=== PATIENT | female | born 1980 | race African-American/Black ===

== ENCOUNTER 2021-01-31 14:17 | Emergency (ER) | payer MEDICAID ==
[~2021-01-31] VITALS: Ht 165.1 cm; Wt 103.0 kg
[2021-01-31 14:23] VITALS: BP 132/86
[2021-01-31] MEDS ORDERED: ACETAMINOPHEN 500MG TABLET PO ONE (15:45)
[2021-01-31] MEDS ORDERED: IBUP-2030 MT (17:20)
[2021-01-31] MEDS ORDERED: KETOROLAC 30MG/ML VIAL IM ONE (17:30)
[2021-01-31] MEDS ORDERED: METOCLOPRAMIDE HCL 10MG TABLET PO ONE (17:30)
== END 2021-01-31 17:45 | disposition home or self-care (01) ==
LOC: ER 14:38
DX: R51.9 Headache, unspecified (principal); E11.9 Type 2 diabetes mellitus without complications; Z88.8 Allergy status to other drugs, medicaments and biological substances; Z88.9 Allergy status to unspecified drugs, medicaments and biological substances; Z86.59 Personal history of other mental and behavioral disorders
CPT/HCPCS: 99284

== ENCOUNTER 2021-08-12 18:53 | Emergency (ER) | payer MEDICAID, OTHER ==
[~2021-08-12] VITALS: Ht 160 cm; Wt 115.0 kg
[~2021-08-12 18:53] MED LIST: IBUP-2030 MT
[2021-08-12] MEDS ORDERED: IBUPROFEN 400MG TABLET PO ONE (19:15)
[2021-08-12] MEDS ORDERED: ACETAMINOPHEN 325MG TABLET PO ONE (19:15)
[2021-08-12 20:45] LABS: BASOPHILS % 0.4 % (0.0-2.0); EOSINOPHILS % 4.3 % (0.0-5.0); HEMATOCRIT. 38.9 % (36.0-48.0); HEMOGLOBIN. 12.5 g/dL (12.0-16.0); LYMPHOCYTES % 37.4 % (20.0-50.0); MEAN CORPUSCULAR HEMOGLOBIN 26.3 pg (28.0-32.0); MEAN CORPUSCULAR VOLUME 81.6 fL (81.0-99.0); MEAN PLATELET VOLUME 9.5 fl (7.4-10.4); MONOCYTES % 7.3 % (2.0-8.0); NEUTROPHILS % 50.6 % (40.0-76.0); PLATELET 200 x1000/uL (130-400); RED BLOOD CELL COUNT 4.77 mill/uL (4.2-5.4); RED CELL DISTRIBUTION WIDTH 14.9 % (11.6-14.6)
[2021-08-12 20:54] LABS: HCG SCREEN NEGATIVE
[2021-08-12 20:55] LABS: CHLORIDE 109 mEq/L (98-107)
[2021-08-12 20:59] LABS: CLARITY URINE CLEAR (CLEAR); COLOR URINE YELLOW (YELLOW); KETONES URINE NEGATIVE (NEGATIVE); LEUKOCYTE ESTERASE URINE NEGATIVE (NEGATIVE); NITRITE URINE NEGATIVE (NEGATIVE); OCCULT BLOOD URINE 2+ (NEGATIVE); PH URINE 6.5 (4.5-8.0); PROTEIN URINE NEGATIVE (NEGATIVE); SPECIFIC GRAVITY URINE 1.014 (1.005-1.030)
[2021-08-12] MEDS ORDERED: IBUP-2028 MT (22:28)
[2021-08-12 22:36] VITALS: BP 128/80
== END 2021-08-12 23:43 | disposition home or self-care (01) ==
LOC: ER 18:53
DX: M25.531 Pain in right wrist (principal); I49.9 Cardiac arrhythmia, unspecified
CPT/HCPCS: 36415; 71045; 80053; 81003; 84703; 85025; 93005; 99285

== ENCOUNTER 2021-11-15 23:34 | Emergency (ER) | payer MEDICAID, OTHER ==
[~2021-11-15] VITALS: Ht 160 cm; Wt 118.0 kg
[~2021-11-15 23:34] MED LIST changes: +IBUP-2028 MT
[2021-11-15] MEDS ORDERED: KETOROLAC 30MG/ML VIAL IV STA (23:37)
[2021-11-16 00:56] LABS: BASOPHILS % 0.8 % (0.0-2.0); EOSINOPHILS % 2.1 % (0.0-5.0); HEMATOCRIT. 37.5 % (36.0-48.0); LYMPHOCYTES % 29.2 % (20.0-50.0); MEAN CORPUSCULAR HEMOGLOBIN 26.5 pg (28.0-32.0); MEAN CORPUSCULAR VOLUME 82.9 fL (81.0-99.0); MEAN PLATELET VOLUME 9.3 fl (7.4-10.4); MONOCYTES % 6.7 % (2.0-8.0); NEUTROPHILS % 61.2 % (40.0-76.0); PLATELET 224 x1000/uL (130-400); RED BLOOD CELL COUNT 4.53 mill/uL (4.2-5.4); RED CELL DISTRIBUTION WIDTH 14.2 % (11.6-14.6)
[2021-11-16 01:03] LABS: CHLORIDE 110 mEq/L (98-107)
[2021-11-16 01:16] LABS: CLARITY URINE CLEAR (CLEAR); COLOR URINE YELLOW (YELLOW); KETONES URINE NEGATIVE (NEGATIVE); LEUKOCYTE ESTERASE URINE NEGATIVE (NEGATIVE); NITRITE URINE NEGATIVE (NEGATIVE); OCCULT BLOOD URINE NEGATIVE (NEGATIVE); PH URINE 5.5 (4.5-8.0); PROTEIN URINE NEGATIVE (NEGATIVE); SPECIFIC GRAVITY URINE 1.016 (1.005-1.030); UROBILINOGEN URINE 0.2 E.U./dL (0.2-1.0)
[2021-11-16 01:21] LABS: ETHANOL BLOOD < 10 mg/dL
[2021-11-16 01:38] LABS: *AMPHETAMINES SCREEN URINE NEGATIVE (NEGATIVE); *BARBITURATES SCREEN URINE NEGATIVE (NEGATIVE); *BENZODIAZEPINES SCREEN URINE NEGATIVE (NEGATIVE); *COCAINE SCREEN URINE NEGATIVE (NEGATIVE); CANNABINOID URINE SCREEN NEGATIVE (NEGATIVE); METHADONE URINE SCREEN NEGATIVE (NEGATIVE); OPIATES URINE SCREEN NEGATIVE (NEGATIVE); PHENCYCLIDINE URINE SCREEN NEGATIVE (NEGATIVE)
[2021-11-16 02:12] LABS: PROTHROMBIN TIME 10.5 sec (9.6-11.0)
[2021-11-16 06:00] VITALS: BP 124/88
== END 2021-11-16 08:20 | disposition home or self-care (01) ==
LOC: ER 23:34
DX: R10.31 Right lower quadrant pain (principal); E11.9 Type 2 diabetes mellitus without complications; Z88.8 Allergy status to other drugs, medicaments and biological substances; Z88.9 Allergy status to unspecified drugs, medicaments and biological substances
CPT/HCPCS: 36415; 74176; 80053; 80305; 80320; 81003; 81025; 83690; 83880; 85025; 85610; 96374; 99284; J1885; Z7610; G0480